=== PATIENT | female | born 1970 | race Caucasian/White ===

== ENCOUNTER 2019-06-07 16:53 | Emergency (ER) | payer OTHER ==
[~2019-06-07] VITALS: Ht 162.6 cm; Wt 67.1 kg
[2019-06-07 17:03] VITALS: Ht 162.6 cm; Wt 67.1 kg
[2019-06-07 17:53] LABS: PLATELET COUNT 275 x10^3mcL (130-400)
[2019-06-07 17:54] LABS: BASOPHIL % 0 % (0-2)
[2019-06-07 18:05] LABS: CALCIUM 8.7 mg/dL (8.5-10.1); CARBON DIOXIDE 23.5 mmol/L (21-32); CREATININE SERUM 1.2 mg/dL (0.6-1.0)
[2019-06-07 18:10] LABS: BILIRUBIN TOTAL 0.4 mg/dL (0.20-1.00)
[2019-06-07 18:18] LABS: CHOLESTEROL/HDL RATIO 4.3
[2019-06-07 18:19] LABS: ALBUMIN 3.6 g/dL (3.4-5.0); TOTAL PROTEIN, SERUM 7.7 g/dL (6.4-8.2)
[2019-06-07 19:09] LABS: UA SPECIFIC GRAVITY <=1.005 (1.005-1.035); microscopic required? YES; urine erythrocyte TRACE (NEGATIVE)
[2019-06-07 20:07] VITALS: BP 119/55
== END 2019-06-07 20:07 | disposition home or self-care (01) ==
LOC: ED 16:53
PROVIDERS: Specialist
DX: N13.30 Unspecified hydronephrosis (principal); N23 Unspecified renal colic; D72.829 Elevated white blood cell count, unspecified; F31.9 Bipolar disorder, unspecified; M54.30 Sciatica, unspecified side; Z98.51 Tubal ligation status
CPT/HCPCS: J0696; J1885; J2405; J3010; J7030; J7060

== ENCOUNTER 2019-06-08 10:16 | Emergency (ER) | payer OTHER ==
[~2019-06-08] VITALS: Ht 162.6 cm; Wt 67.1 kg
[2019-06-08 10:35] VITALS: Ht 162.6 cm; Wt 67.1 kg
[2019-06-08 11:01] LABS: BASOPHIL % 0.6 % (0-2); PLATELET COUNT 240 x10^3mcL (130-400); RED CELL DISTRIBUTION WIDTH 13.9 % (11.5-14.5)
[2019-06-08 11:21] VITALS: BP 133/76
== END 2019-06-08 11:21 | disposition home or self-care (01) ==
LOC: ED 10:16
PROVIDERS: Specialist
DX: D72.829 Elevated white blood cell count, unspecified (principal); R10.9 Unspecified abdominal pain; F31.9 Bipolar disorder, unspecified; Z13.89 Encounter for screening for other disorder; Z87.442 Personal history of urinary calculi; Z98.51 Tubal ligation status; Z98.890 Other specified postprocedural states
CPT/HCPCS: 36415